=== PATIENT | male | born 1970 | race Caucasian/White ===

== ENCOUNTER 2018-08-06 17:26 | Emergency (ER) | payer OTHER ==
[~2018-08-06] VITALS: Ht 175.3 cm; Wt 77.1 kg
[2018-08-06] MEDS ORDERED: TRIAMCINOLONE A15 G1 TOP (18:52)
== END 2018-08-06 19:02 | disposition home or self-care (01) ==
LOC: ED 17:26
DX: L30.9 Dermatitis, unspecified (principal); F17.200 Nicotine dependence, unspecified, uncomplicated
CPT/HCPCS: 99282

== ENCOUNTER 2022-03-19 20:26 | Emergency (ER) | payer OTHER ==
[~2022-03-19] VITALS: Ht 175.3 cm; Wt 77.1 kg
[~2022-03-19 20:26] MED LIST: TRIAMCINOLONE A15 G1 TOP
[2022-03-19] MEDS ORDERED: ZYPREXA10 MG PO (20:47)
[2022-03-19] MEDS ORDERED: CYMBALTA60 MG PO (20:47)
--- NOTE | 2022-03-20 21:07 | EKG ---
[facility] [address] [facility] [place] [address] Signed Sinus bradycardia Incomplete right bundle branch block Borderline ECG No previous ECGs available Confirmed by Belinda Swift MD () on 03/20/2022 9:07:46 PM Electronically Signed By: BELINDA SWIFT MD 03/20/222106 PATIENT NAME: APPLE ARAMBULA Electrocardiogram DATE OF : 72 PHYSICIAN: BELINDA SWIFT MD REPORT #: [id number] REPORT IS CONFIDENTIAL AND NOT TO BE RELEASED WITHOUT AUTHORIZATION
== END 2022-03-19 23:38 | disposition home or self-care (01) ==
LOC: ED 20:26
DX: E86.0 Dehydration (principal); F17.200 Nicotine dependence, unspecified, uncomplicated; Z79.899 Other long term (current) drug therapy
CPT/HCPCS: 36415; 80053; 81001; 83735; 84484; 85025; 93005; 93010; 96360; 99284-25; J7121

== ENCOUNTER 2024-08-06 16:59 | Emergency (ER) | payer OTHER ==
[~2024-08-06] VITALS: Ht 175.3 cm; Wt 68.9 kg
[~2024-08-06 16:59] MED LIST changes: +CYMBALTA60 MG PO; +ZYPREXA10 MG PO
[2024-08-06] MEDS ORDERED: CYCLOBENZAPRINE10 MG PO (19:24)
[2024-08-06] MEDS ORDERED: PROMETHAZINE HCL 50 MG/ML SDV IM ONE (19:30)
[2024-08-06] MEDS ORDERED: KETOROLAC TROMETHAMINE 30 MG/ML VIAL IM ONE (19:30)
[2024-08-06 20:09] VITALS: BP 150/94
== END 2024-08-06 20:09 | disposition home or self-care (01) ==
LOC: ED 16:59
DX: M54.50 Low back pain, unspecified (principal); G89.29 Other chronic pain; F17.200 Nicotine dependence, unspecified, uncomplicated
CPT/HCPCS: 96372; 99283; J1885; J2550